=== PATIENT | male | born 1970 | race Caucasian/White ===

== ENCOUNTER 2021-07-06 04:26 | Emergency (ER) | payer BC ==
[2021-07-06 05:01] VITALS: BP 136/88; PULSE 69; TEMP 98.5; BMI 25.8
== END 2021-07-06 06:32 | disposition home or self-care (01) ==
LOC: JER 04:26
DX: J06.9 Acute upper respiratory infection, unspecified (principal); J09.X2 Influenza due to identified novel influenza A virus with other respiratory manifestations
CPT/HCPCS: 82962; 87804; 99283-25; C9803-CS; U0003; U0005